=== PATIENT | male | born 1945 | race Caucasian/White ===

== ENCOUNTER 2017-07-05 09:48 | Day surgery (SDC) | payer MEDICARE ==
[~2017-07-05] VITALS: Ht 172.7 cm; Wt 73.0 kg
[2017-07-05] MEDS ORDERED: LIDOCAINE HCL 1% 10 ML VIAL OTHER ONE (09:49)
[2017-07-05 10:00] VITALS: BP 129/67; PULSE 60; RESP 18; TEMP 98.3; O2SAT 95
[2017-07-05] MEDS ORDERED: LEVO75TA3 PO (10:04)
[2017-07-05] MEDS ORDERED: VALS1TAB70 PO (10:04)
[2017-07-05] MEDS ORDERED: PANT40TA3 PO (10:04)
[2017-07-05] MEDS ORDERED: AMLO5TAB2 PO (10:04)
[2017-07-05] MEDS ORDERED: CITA20TA4 PO (10:04)
[2017-07-05 10:40] LABS: AUTOMATED NEUTROPHIL # 3.1 TH/MM3 (1.8-7.7); BASOPHIL % 0.4 % (0.0-2.0); EOSINOPHIL # 0.1 TH/MM3 (0-0.4); EOSINOPHIL % 1.3 % (0.0-4.0); HEMATOCRIT 38.3 % (39.0-51.0); HEMOGLOBIN 13.1 GM/DL (13.0-17.0); LYMPHOCYTE # 1.2 TH/MM3 (1.0-4.8); MEAN CELL VOLUME 93.6 FL (80.0-100.0); MEAN CORPUSCULAR HEMOGLOBIN 32.1 PG (27.0-34.0); MEAN CORPUSCULAR HGB CONC 34.3 % (32.0-36.0); MEAN PLATELET VOLUME 7.2 FL (7.0-11.0); MONO % 10.2 % (0.0-8.0); MONOCYTE # 0.5 TH/MM3 (0-0.9); NEUT % 64.1 % (16.0-70.0); PLATELET COUNT 251 TH/MM3 (150-450); RED CELL DISTRIBUTION WIDTH 12.3 % (11.6-17.2); WHITE BLOOD COUNT 4.8 TH/MM3 (4.0-11.0)
[2017-07-05] MEDS ORDERED: SODIUM CHLORIDE 2 ML FLUSH PRN IV FLUSH (10:45)
[2017-07-05] MEDS ORDERED: SODIUM CHLOR 0.9% 1000 ML IV SCH (11:00)
[2017-07-05] MEDS ORDERED: MIDAZOLAM HCL 5 MG/5 ML VIAL ONE (11:01)
[2017-07-05] MEDS ORDERED: fentaNYL CITRATE 250 MCG/5 ML AMP ONE (11:01)
--- NOTE | 2017-07-05 11:47 | PD.RAD ---
Post CT Procedure Prog Note Pre Procedure Diagnosis: (1) Anemia Post Procedure Diagnosis: (1) Anemia Procedure Date: Jul 05, 2017 Supervising Radiologist: Randy Brice Estimated blood loss: minimal. Anesthesia: Conscious Sedation Plan of Activity Patient to Unit: ROPU Patient Condition: Good See PACS Report for procedural detail/treatment Biopsy Imaging Guidance: CT Side: Left Biopsy Procedure: Bone Marrow Site: left posterior iliac bone. Specimen: Core Biopsy Additional Detail: BM biopsy and aspirate performed according to protocol. Plan to ROPU then discharge in 2 hours. Randy Brice MD Jul 05, 2017 11:47
[2017-07-05 11:55] VITALS: BP 124/73; PULSE 75; RESP 18; TEMP 97.6; O2SAT 95
[2017-07-05 12:10] VITALS: BP 117/71; PULSE 55; RESP 18; O2SAT 94
[2017-07-05 12:40] VITALS: BP 124/68; PULSE 68; RESP 18; O2SAT 94
[2017-07-05 13:10] VITALS: BP 119/69; PULSE 71; RESP 18; O2SAT 94
[2017-07-05 13:40] VITALS: BP 121/73; PULSE 71; RESP 18; O2SAT 94
--- NOTE | 2017-07-05 13:59 | RADRPT ---
EXAM DATE/TIME: 07/05/2017 11:22 [place] COMPARISON: No previous studies available for comparison. INDICATIONS : Normocyctic anemia SEDATION TIME: 30 minutes BIOPSY SITE: Left MEDICATION(S): 1.) 3.5 mg midazolam (Versed) IV 2.) 175 mcg fentanyl (Sublimaze) IV DEVICE(S): 1.) 11 gauge Bone marrow biopsy needle MEDICAL HISTORY : Hypertension. SURGICAL HISTORY : Appendectomy. ENCOUNTER: Initial ACUITY: 1 day PAIN SCORE: 0/10 LOCATION: Left A total of one core specimen(s) were obtained and sent to the laboratory for pathologic evaluation. PROCEDURE: 1. CT guided bone marrow biopsy. 2. Conscious sedation with continuous EKG and oximetry monitoring. 3. EKG and oximetry remained stable throughout the procedure. Prior to the procedure informed consent was obtained. Any appropriate prior imaging studies were rev iewed. Using automated exposure control and adjustment of the mA and/or kV according to patient size , radiation dose was kept as low as reasonably achievable to obtain optimal diagnostic quality images . DICOM format image data is available electronically for review and comparison. The site was prepped in a sterile fashion. Full sterile technique was used, including cap, mask, albert rile gloves and gown and a large sterile sheet. Hand hygiene and 2% chlorhexidine and/or betadine/al cohol prep was utilized per protocol for cutaneous antisepsis. The skin and subcutaneous tissues wer e infiltrated with local anesthetic solution. With CT guidance the left posterior iliac bone was localized. Biopsy was performed using the prescrib ed needle as above. Following biopsy marrow aspiration was performed with repeat puncture. Adequate hemostasis was obtained with compression at the puncture site. Conscious sedation was performed with the prescribed dosages and duration as above in the presence of an independent trained radiology nurse to assist in the monitoring of the patient. EKG and oximetry remained stable throughout the procedure. The patient tolerated the procedure well and there were no complications. The patient was sent to Radiology Outpatient Unit in stable condition. CONCLUSION: 1. Uncomplicated CT guided bone marrow aspirate. 2. Uncomplicated CT guided bone marrow biopsy. Randy Brice MD on July 05, 2017 at 11:59 Board Certified Radiologist. This report was verified electronically.
[2017-07-05] MEDS ORDERED: SODIUM CHLORIDE 2 ML FLUSH BID IV FLUSH SCH (21:00)
== END 2017-07-05 14:00 | disposition home or self-care (01) ==
LOC: HRIP 09:48 → HRAD 09:48
PROVIDERS: ATTEND Internal Medicine
DX: D64.9 Anemia, unspecified (principal); I10 Essential (primary) hypertension; E03.9 Hypothyroidism, unspecified
CPT/HCPCS: 38222; 77012; 85025; 85097; 88184; 88185; 88237; 88264; 88280; 88305; 88311; 88313; 99152; 99153; C1830; J2250; J3010